=== PATIENT | female | born 1995 | race Caucasian/White ===

== ENCOUNTER 2017-09-25 00:27 | Emergency (ER) | payer SELFPAY ==
[~2017-09-25] VITALS: Ht 177.8 cm; Wt 66.7 kg
--- NOTE | 2017-09-25 01:15 | NUR ---
DR. WORTHY AT BEDSIDE FOR MSE.
[2017-09-25] MEDS ORDERED: HYDROCODONE/APAP 5-325MG TABLET PO ONE (01:30)
[2017-09-25] MEDS ORDERED: HYDROCODONE/APAP 5-325MG TABLET ONE (01:37)
--- NOTE | 2017-09-25 01:39 | NUR ---
PT REFUSED CT SCAN. MD JOSUE.
--- NOTE | 2017-09-25 01:48 | NUR ---
Patient discharged to home in stable conditon. Written and verbal after care instructions given. Patient verbalizes understanding of instructions. Pt left ER in steady gait. All belongings with pt. VSS. No acute distress noted. Pt will take Uber to get home.
[2017-09-25 01:49] VITALS: BP 114/84
== END 2017-09-25 01:50 | disposition home or self-care (01) ==
LOC: ER 00:36
DX: S13.4XXA Sprain of ligaments of cervical spine, initial encounter (principal); V43.52XA Car driver injured in collision with other type car in traffic accident, initial encounter; Y93.89 Activity, other specified; Y92.410 Unspecified street and highway as the place of occurrence of the external cause; Y99.8 Other external cause status
CPT/HCPCS: 99283; A4663

== ENCOUNTER 2018-04-06 18:45 | Emergency (ER) | payer OTHER ==
[~2018-04-06] VITALS: Ht 177.8 cm; Wt 62.6 kg
[2018-04-06] MEDS ORDERED: ESCI5TAB PO (18:59)
--- NOTE | 2018-04-06 19:28 | NUR ---
SHIFT REPORT GIVEN TO DESIREE MARLEY.
--- NOTE | 2018-04-06 19:45 | NUR ---
DR. MARSH AT BEDSIDE FOR MSE.
--- NOTE | 2018-04-06 19:58 | NUR ---
Patient discharged to home in stable conditon. Written and verbal after care instructions given. Patient verbalizes understanding of instructions. Walked out of ER with no distress noted
[2018-04-06 19:59] VITALS: BP 115/75
== END 2018-04-06 19:59 | disposition home or self-care (01) ==
LOC: ER 18:47
DX: S29.012A Strain of muscle and tendon of back wall of thorax, initial encounter (principal); Z79.899 Other long term (current) drug therapy; X58.XXXA Exposure to other specified factors, initial encounter; Y93.89 Activity, other specified; Y92.89 Other specified places as the place of occurrence of the external cause; Y99.8 Other external cause status
CPT/HCPCS: A4663

== ENCOUNTER 2018-09-13 16:44 | Emergency (ER) | payer OTHER ==
[~2018-09-13] VITALS: Ht 177.8 cm; Wt 63.5 kg
[~2018-09-13 16:44] MED LIST: ESCI5TAB PO
--- NOTE | 2018-09-13 17:08 | NUR ---
SUSIE TRAYLOR AT BEDSIDE FOR MSE.
[2018-09-13] MEDS ORDERED: ONDANSETRON ODT 4 MG TAB.RAPDIS SL ONE (17:15)
[2018-09-13] MEDS ORDERED: MORPHINE SULFATE 2 MG/1 ML DISP.SYRIN IM ONE (17:15)
[2018-09-13] MEDS ORDERED: ONDANSETRON ODT 4 MG TAB.RAPDIS ONE (17:18)
[2018-09-13] MEDS ORDERED: MORPHINE SULFATE 2 MG/1 ML DISP.SYRIN ONE (17:18)
--- NOTE | 2018-09-13 17:34 | NUR ---
Patient discharged to home in stable conditon. Written and verbal after care instructions given. Patient verbalizes understanding of instructions. ALL BELONGINGS W/ PT. PT SELF-AMBULATED W/O DIFFICULTY. PT WILL BE DRIVEN HOME BY MOTHER IN PRIVATE VEHICLE.
[2018-09-13 17:35] VITALS: BP 126/66
== END 2018-09-13 17:36 | disposition home or self-care (01) ==
LOC: ER 16:44
DX: M62.830 Muscle spasm of back (principal); Z79.899 Other long term (current) drug therapy
CPT/HCPCS: 96372; 99283; J2270; A4663; Q0162

== ENCOUNTER 2019-06-11 20:21 | Emergency (ER) | payer OTHER ==
[~2019-06-11] VITALS: Ht 177.8 cm; Wt 63.5 kg
--- NOTE | 2019-06-11 20:23 | NUR ---
Patient walked into the er with complaints of sore throat and coughing. Patient was afebrile with stable vital signs.
[2019-06-11] MEDS ORDERED: GUAIFENESIN/CODEINE 5 ML LIQUID UDC PO ONE (21:00)
[2019-06-11] MEDS ORDERED: GUAIFENESIN/CODEINE 5 ML LIQUID UDC ONE ×2 (21:00→21:02)
[2019-06-11] MEDS ORDERED: GUAIFENESIN SUGAR FREE 100 MG/5 ML UDC ONE (21:01)
[2019-06-11 21:08] VITALS: BP 122/70
--- NOTE | 2019-06-11 21:10 | NUR ---
Patient was discharged with prescription for Robitussin AC. Medication teaching provided with pt expressing understanding. patient expressed concerns about possible COVID-[address] Toledo explained to the patient about her concerns with the current coronavirus pandemic, assuring her she doesn't meet the criteria for testing. Patient understood everything explained to her. Patient given 1 dose of the prescribed robitussion AC prior to discharge. Instructed not to operate any motor vehicles while taking this medication. Patient was discharged with a friend who had driven her here to the ER.
== END 2019-06-11 21:10 | disposition home or self-care (01) ==
LOC: ER 20:23
DX: J02.8 Acute pharyngitis due to other specified organisms (principal); R05 Cough
CPT/HCPCS: A4663

== ENCOUNTER 2019-09-17 21:27 | Emergency (ER) | payer MEDICAID, OTHER ==
[~2019-09-17] VITALS: Ht 177.8 cm; Wt 65.8 kg
[2019-09-17] MEDS ORDERED: HYDROMORPHONE 2 MG/1 ML DISP.SYRIN ONE (21:55)
[2019-09-17] MEDS ORDERED: ONDANSETRON 4 MG/2 ML VIAL ONE (21:55)
[2019-09-17] MEDS ORDERED: HYDROMORPHONE 1 MG/1 ML DISP.SYRIN IM ONE (22:00)
[2019-09-17] MEDS ORDERED: ONDANSETRON 4 MG/2 ML VIAL IM ONE (22:00)
--- NOTE | 2019-09-17 22:04 | NUR ---
Patient discharged to home in stable condition. Written and verbal after care instructions given. Patient verbalizes understanding of instructions. Stressed follow up or return to ER for worsening s/s. Pt left ER in stable condition. Pt has a ride home.
[2019-09-17 22:05] VITALS: BP 116/83
== END 2019-09-17 22:05 | disposition home or self-care (01) ==
LOC: ER 21:28
DX: G89.29 Other chronic pain (principal); M51.24 Other intervertebral disc displacement, thoracic region
CPT/HCPCS: 96372 ×2; 99284; J1170; J2405; A4663

== ENCOUNTER 2019-11-30 18:49 | Emergency (ER) | payer MEDICAID ==
[~2019-11-30] VITALS: Ht 177.8 cm
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
[2019-11-30] MEDS ORDERED: ONDANSETRON 4 MG/2 ML VIAL IM ONE (19:15)
[2019-11-30] MEDS ORDERED: MORPHINE SULFATE 4 MG/1 ML DISP.SYRIN IM ONE (19:15)
[2019-11-30] MEDS ORDERED: MORPHINE SULFATE 4 MG/1 ML DISP.SYRIN ONE (19:17)
[2019-11-30] MEDS ORDERED: ONDANSETRON 4 MG/2 ML VIAL ONE (19:17)
--- NOTE | 2019-11-30 19:33 | NUR ---
Patient discharged to home in stable condition. Written and verbal after care instructions given. Patient verbalizes understanding of instructions. Stressed follow up or return to ER for worsening s/s.
[2019-11-30 19:35] VITALS: BP 110/82
== END 2019-11-30 19:43 | disposition home or self-care (01) ==
LOC: ER 18:50
DX: T22.111A Burn of first degree of right forearm, initial encounter (principal); X12.XXXA Contact with other hot fluids, initial encounter; Y93.89 Activity, other specified; Y92.89 Other specified places as the place of occurrence of the external cause; G89.29 Other chronic pain; M54.9 Dorsalgia, unspecified
CPT/HCPCS: 96372 ×2; 99284; J2270; J2405; A4663

== ENCOUNTER 2020-05-08 18:21 | Emergency (ER) | payer MEDICAID ==
[~2020-05-08] VITALS: Ht 177.8 cm; Wt 72.6 kg
[2020-05-08] MEDS ORDERED: CARISOPRODOL 350 MG TABLET PO ONE (19:00)
[2020-05-08] MEDS ORDERED: IBUPROFEN 600 MG TABLET PO ONE (19:00)
[2020-05-08] MEDS ORDERED: CARI350T PO (19:01)
[2020-05-08] MEDS ORDERED: IBUPROFEN 600 MG TABLET ONE (19:07)
[2020-05-08] MEDS ORDERED: CARISOPRODOL 350 MG TABLET ONE (19:07)
[2020-05-08 19:09] VITALS: BP 122/79
== END 2020-05-08 19:09 | disposition home or self-care (01) ==
LOC: ER 18:22
DX: M62.830 Muscle spasm of back (principal)
CPT/HCPCS: A4663

== ENCOUNTER 2020-07-08 16:31 | Emergency (ER) | payer MEDICAID ==
[~2020-07-08] VITALS: Ht 167.6 cm; Wt 72.6 kg
[~2020-07-08 16:31] MED LIST changes: +CARI350T PO
--- NOTE | 2020-07-08 16:43 | NUR ---
Dr Bautista at the bedside for MSE.
[2020-07-08] MEDS ORDERED: MORPHINE SULFATE 4 MG/1 ML DISP.SYRIN ONE (16:58)
[2020-07-08] MEDS ORDERED: ONDANSETRON ODT 4 MG TAB.RAPDIS ONE (16:58)
[2020-07-08] MEDS ORDERED: ONDA4TAB11 PO (16:59)
[2020-07-08] MEDS ORDERED: NAPR500T6 PO (16:59)
[2020-07-08] MEDS ORDERED: ONDANSETRON ODT 4 MG TAB.RAPDIS SL ONE (17:00)
[2020-07-08] MEDS ORDERED: KETOROLAC TROMETHAMINE 30 MG INJ IM ONE (17:00)
[2020-07-08] MEDS ORDERED: MORPHINE SULFATE 4 MG/1 ML DISP.SYRIN IM ONE (17:00)
[2020-07-08] MEDS ORDERED: CARI350T PO (17:17)
--- NOTE | 2020-07-08 17:21 | NUR ---
Pt states feeling better and no longer nauseous.
[2020-07-08 17:24] VITALS: BP 143/80
== END 2020-07-08 17:24 | disposition home or self-care (01) ==
LOC: ER 16:31
DX: R11.2 Nausea with vomiting, unspecified (principal); M62.830 Muscle spasm of back; Z79.899 Other long term (current) drug therapy
CPT/HCPCS: 96372; 99283; J2270; A4663; Q0162

== ENCOUNTER 2021-03-22 15:38 | Emergency (ER) | payer MEDICAID ==
[~2021-03-22] VITALS: Ht 177.8 cm; Wt 81.6 kg
[~2021-03-22 15:38] MED LIST changes: +NAPR500T6 PO; +ONDA4TAB11 PO
[2021-03-22] MEDS ORDERED: ONDANSETRON 4 MG/2 ML VIAL IV ONE (16:00)
[2021-03-22] MEDS ORDERED: IV NORMAL SALINE 1000 ML BAG IV ONE (16:00)
[2021-03-22] MEDS ORDERED: KETOROLAC TROMETHAMINE 15 MG INJ IVP ONE (16:00)
[2021-03-22] MEDS ORDERED: KETOROLAC TROMETHAMINE 15 MG INJ ONE (16:13)
[2021-03-22] MEDS ORDERED: ONDANSETRON 4 MG/2 ML VIAL ONE (16:14)
[2021-03-22 16:21] LABS: HEMATOCRIT 45.3 % (31.2-41.9); MEAN CORPUSCULAR HEMOGLOBIN 27.6 uug (24.7-32.8); MEAN CORPUSCULAR VOLUME 81.7 fL (75.5-95.3); PLATELET COUNT (AUTO) 214 K/uL (179-408)
[2021-03-22 16:27] LABS: *BILIRUBIN,URIN NEGATIVE (NEGATIVE); *BLOOD, URINE NEGATIVE (NEGATIVE); *CLARITY,URINE SLIGHTLY CLOUDY (CLEAR); *COLOR,URINE YELLOW (YELLOW); *KETONES,URINE TRACE (NEGATIVE); *UROBILINOGEN,URINE 0.2 E.U./dl (NORMAL); LEUKOCYTE ESTERASE ,URINE TRACE (NEGATIVE); NITRITE, URINE NEGATIVE (NEGATIVE); UGLUCOSE NEGATIVE (NEGATIVE)
[2021-03-22 16:30] LABS: *URINE HCG, QUAL NEG (NEGATIVE)
[2021-03-22 16:31] LABS: NEUTROPHILS % (MANUAL) 0 % (42-75)
[2021-03-22 16:38] LABS: BILIRUBIN,TOTAL 0.7 mg/dL (0.2-1.0); CREATININE 0.9 mg/dL (0.6-1.3); POTASSIUM 4.6 mmol/L (3.5-5.1); TOTAL PROTEIN, SERUM 7.8 g/dL (6.4-8.2)
[2021-03-22] MEDS ORDERED: METHOCARBAMOL 500 MG TABLET PO ONE (16:45)
[2021-03-22] MEDS ORDERED: ONDA4TAB5 PO (16:58)
[2021-03-22] MEDS ORDERED: METHOCARBAMOL 500 MG TABLET ONE (17:03)
--- NOTE | 2021-03-22 17:17 | NUR ---
Patient discharged to home in stable condition. DR Clemons Written and verbal after care instructions given. Patient verbalizes understanding of instructions. Stressed follow up or return to ER for worsening s/s.
[2021-03-22] MEDS ORDERED: METH-806 PO (17:20)
[2021-03-22 17:40] VITALS: BP 133/77
[2021-03-22 20:03] LABS: BACTERIA,URINE NONE SEEN /HPF (NONE SEEN); RBC,URINE 0-3 /HPF (0-3); WBC,URINE 0-3 /HPF (0-3)
[2021-03-22 20:04] LABS: SQUAMOUS EPITHELIAL CELL,UR NONE SEEN /HPF (NONE SEEN); URINE AMORPHOUS URATE MANY /HPF
== END 2021-03-22 17:41 | disposition home or self-care (01) ==
LOC: ER 15:39
DX: U07.1 COVID-19 (principal); R11.2 Nausea with vomiting, unspecified; R19.7 Diarrhea, unspecified
CPT/HCPCS: 36415; 80053; 81001; 83690; 84703; 85007; 85025; 87400; 87426; 96361; 96374; 96375; 99284; J1885; J2405; 70030-TC; J7030

== ENCOUNTER 2021-08-08 15:20 | Emergency (ER) | payer MEDICAID ==
[~2021-08-08] VITALS: Ht 177.8 cm; Wt 81.6 kg
[~2021-08-08 15:20] MED LIST changes: +METH-806 PO; +ONDA4TAB5 PO
[2021-08-08 15:42] LABS: *BILIRUBIN,URIN NEGATIVE (NEGATIVE); *BLOOD, URINE 2+ (NEGATIVE); *CLARITY,URINE CLEAR (CLEAR); *COLOR,URINE YELLOW (YELLOW); *KETONES,URINE NEGATIVE (NEGATIVE); *UROBILINOGEN,URINE 0.2 E.U./dl (NORMAL); LEUKOCYTE ESTERASE ,URINE NEGATIVE (NEGATIVE); NITRITE, URINE NEGATIVE (NEGATIVE); UGLUCOSE NEGATIVE (NEGATIVE)
[2021-08-08 15:43] LABS: *URINE HCG, QUAL NEG (NEGATIVE)
[2021-08-08 15:55] LABS: HEMATOCRIT 36.3 % (31.2-41.9); MEAN CORPUSCULAR HEMOGLOBIN 27.1 uug (24.7-32.8); MEAN CORPUSCULAR VOLUME 79.5 fL (75.5-95.3); PLATELET COUNT (AUTO) 240 K/uL (179-408)
[2021-08-08 16:07] LABS: BILIRUBIN,DIRECT 0.2 mg/dL (0.0-0.2); BILIRUBIN,TOTAL 1.3 mg/dL (0.2-1.0); CREATININE 0.8 mg/dL (0.6-1.3); POTASSIUM 4.1 mmol/L (3.5-5.1); TOTAL PROTEIN, SERUM 6.6 g/dL (6.4-8.2)
[2021-08-08 16:47] VITALS: BP 125/70
[2021-08-08 20:27] LABS: BACTERIA,URINE NONE SEEN /HPF (NONE SEEN); SQUAMOUS EPITHELIAL CELL,UR FEW /HPF (NONE SEEN); WBC,URINE 0-3 /HPF (0-3)
== END 2021-08-08 16:47 | disposition home or self-care (01) ==
LOC: ER 15:22
DX: R10.2 Pelvic and perineal pain (principal); R10.33 Periumbilical pain
CPT/HCPCS: 36415; 76856; 83690; 84703; 85025; A4663

== ENCOUNTER 2021-08-16 21:41 | Emergency (ER) | payer MEDICAID ==
[~2021-08-16] VITALS: Ht 177.8 cm; Wt 72.6 kg
--- NOTE | 2021-08-16 21:45 | NUR ---
Dr. Armando at bedside, MSE in progress.
[2021-08-16] MEDS ORDERED: ALPRAZOLAM 0.5 MG TABLET ONE (21:57)
[2021-08-16] MEDS ORDERED: ALPRAZOLAM 0.25 MG TABLET PO ONE (22:00)
[2021-08-16] MEDS ORDERED: ALPR2TAB2 PO (22:02)
--- NOTE | 2021-08-16 22:08 | NUR ---
Patient discharged to home in stable condition. Written and verbal after care instructions given. Patient verbalizes understanding of instructions. Stressed follow up or return to ER for worsening s/s. Steady gait. Picked up by friend.
[2021-08-16 22:30] VITALS: BP 133/81
== END 2021-08-16 22:10 | disposition home or self-care (01) ==
LOC: ER 21:42
DX: F41.9 Anxiety disorder, unspecified (principal)
CPT/HCPCS: A4663